=== PATIENT | female | born 1980 | race Caucasian/White ===

== ENCOUNTER 2022-11-09 21:30 | Observation (INO) | payer MEDICARE, MEDICAID ==
[~2022-11-09] VITALS: Ht 162.6 cm; Wt 117.2 kg
[2022-11-09] MEDS ORDERED: BACTRIM DS 8001 TAB PO (21:40)
[2022-11-09 22:34] LABS: BASO # 0.1 K/mm3 (0.0-0.2); BASO % 0.5 % (0.0-2.0); EOS # 0.2 K/mm3 (0.0-0.7); EOS % 1.2 % (0.0-4.0); GRAN # 8.2 K/mm3 (1.4-6.5); GRAN % 62.3 % (42.2-75.2); HEMATOCRIT 38.3 % (37.0-47.0); HEMOGLOBIN 12.1 g/dl (12.5-16.0); LYMPH # 3.8 K/mm3 (1.2-3.4); MEAN CELL VOLUME 87 fl (80.0-100.0); MEAN CORPUSCULAR HEMOGLOBIN 27 pg (27-31); MEAN CORPUSCULAR HGB CONC 32 g/dl (33.0-37.0); MEAN PLATELET VOLUME 8.9 fl (7.4-10.4); MONO # 0.9 K/mm3 (0.1-0.6); MONO % 6.5 % (1.7-9.3); PLATELET COUNT 402 K/mm3 (130-400); RED BLOOD COUNT 4.42 M/mm3 (4.10-5.30); REDCELL DISTRIBUTION WIDTH-CV 13.9 % (11.5-14.5)
[2022-11-09 22:51] LABS: CALCIUM 8.9 mg/dL (8.4-10.2); CREATININE, serum 0.81 mg/dL (0.57-1.11)
--- NOTE | 2022-11-10 01:40 | NUR ---
pt arrived to room from ED. pt a&ox4 and independent in room.
[2022-11-10 01:44] VITALS: BP 136/71; PULSE 83; TEMP 97.5
[2022-11-10 03:21] VITALS: BP 116/55; PULSE 78; TEMP 97.5
[2022-11-10 07:00] VITALS: BP 132/71; PULSE 93; TEMP 98.3
--- NOTE | 2022-11-10 07:20 | NUR ---
Received shift report from the night nurseCarrie RN
--- NOTE | 2022-11-10 07:26 | NUR ---
[id number] This student nurse received report from primary nurse from retail shift leader. Discussed plan of care and coordination with primary dayshift nurse, Amber ACOSTA. 0700 Pt resting in bed. Assessment completed (See shift assessment for details.) Pt c/o headache and right breast pain with a 2/10. Primary nurse notified. Pt is NPO is at this time. Call light within reach. Will continue to monitor.
[2022-11-10 08:00] VITALS: BP 132/71; PULSE 93; TEMP 98.3
--- NOTE | 2022-11-10 09:23 | NUR ---
Local Superintendent met with patient to discuss discharge planning. Patient lives in [place] and advised she is in the process of being evicted from her residence. Patient is unsure what her eviction date is as it's been unclear to her. Patient advised she is having many issues with the housing authority. Patient does not have reliable transportation and has no phone, which have been barriers for her. Patient does not have a current primary care physician at this time. Patient stated she has been in and out of the emergency room recently trying to figure out what's going on with her breast as well as adjusting her regular medications. Patient has been up ambulating in the halls independently. Patient does not have DPOA-HC. Her next of kin would be her two children: Sree and Milan who live out of state. Patient's local contacts are her mother, June and sister, Yoli (ph#[phone]). At this time, patient plans to return to her current residence at time of discharge. Discharge Plan: Home
--- NOTE | 2022-11-10 10:36 | NUR ---
Initial visit; Patient using telephone but thanked Lighting Director for stopping by and letting her know that Spiritual Care is available at [facility] and for offering her God's blessings.
[2022-11-10 11:43] VITALS: BP 126/68; PULSE 86; TEMP 98.2
--- NOTE | 2022-11-10 11:45 | NUR ---
Patient laying in bed alert and oriented. Patient c/o feeling nauseous and havng headaches. Patient has lumps and redness at the right breast with inverted nipples. Patient has no orders for N/V amnd pain. Phone call place to Dr. Saldaña for orders.
[2022-11-10] MEDS ORDERED: ULTRAM 50MG TAB50 MG PO (12:25)
--- NOTE | 2022-11-10 14:30 | NUR ---
Rehabilitation Specialist presented [facility]ANTES form to patient and advised she would be downgraded to observation status. Patient verbalized understanding and provided signature. SW placed form in chart and provided copy to patient.
== END 2022-11-10 14:00 | disposition home or self-care (01) ==
LOC: COL.ER 21:30 → SURG 11-10 00:11
PROVIDERS: Emergency Medicine Emergency Medical Services; ADMIT Surgery
DX: N63.0 Unspecified lump in unspecified breast (principal); R59.0 Localized enlarged lymph nodes; R91.1 Solitary pulmonary nodule
CPT/HCPCS: G0378; J0696; J2405; J3370; J7042; J7050; Q9967

== ENCOUNTER 2022-11-25 08:33 | Day surgery (SDC) | payer MEDICARE, MEDICAID ==
[2022-11-25] VITALS (7 sets, daily range): BP systolic 124–164; BP diastolic 65–86; PULSE 74–101; TEMP 97.6–98.5
[~2022-11-25] VITALS: Ht 162.6 cm; Wt 139.4 kg
[~2022-11-25 08:33] MED LIST: BACTRIM DS 8001 TAB PO; ULTRAM 50MG TAB50 MG PO
[2022-11-25] MEDS ORDERED: KAPSPARGO SPRIN25 MG PO (08:51)
[2022-11-25] MEDS ORDERED: NORCO 325 MG-51 TAB PO ×2 (08:51→11:36)
[2022-11-25] MEDS ORDERED: EUTHYROX25 MCG PO (08:52)
[2022-11-25] MEDS ORDERED: PRINIVIL10 MG PO (08:52)
[2022-11-25] MEDS ORDERED: LEXAPRO20 MG PO (08:53)
[2022-11-25] MEDS ORDERED: LIPITOR 40MG TA40 MG PO (08:53)
[2022-11-25] MEDS ORDERED: AMBIEN 10MG10 MG PO (08:53)
[2022-11-25] MEDS ORDERED: MIRAPEX 1MG PO (08:53)
[2022-11-25] MEDS ORDERED: ZYRTEC 10MG10 MG PO (08:54)
[2022-11-25] MEDS ORDERED: WELLBUTRIN SR150 M1 PO (08:54)
[2022-11-25] MEDS ORDERED: PROMETHAZINE12.5 M5 PO (08:55)
--- NOTE | 2022-11-25 09:17 | NUR ---
AT BEDSIDE SPEAKING WITH PT.
--- NOTE | 2022-11-25 19:18 | NUR ---
PT TO [facility] FROM OR S/P LEFT CHEST PORT-A-CATH PLACEMENT DRSG (SUTURE, BOARDER GAUZE; BANDAID) CDI PLACED ON MONITOR, VSS ON RA RECEIVED REPORT AND ASSUMED CARE OF PT FROM SHAYY AND ORRN FRIEND TO PICK HER UP AT D/C, DECLINED FAMILY NOTIFICATION A&O, NAD, PROVIDED PEPSI AND ICE CREAM S/P WAKING FROM MOD SEDATION - TOLERATING WELL. PT HAS REMAINED A&O, NAD, VSS ON RA, TOLERATING PO, IS WITHOUT SIGNIFICANT COMPLAINT, WITH STEADY GAIT THRU OUT [facility] 1210 IV D/C'D. D/C INSTRUCTIONS, ANY FOLLOW UP REVIEWED AND HANDED TO PT. ALL QUESTIONS AND CONCERNS ADDRESSED TO PT SATISFACTION. HOWEVER, RIDE CANNOT COME UNTI 1315 - TO TO WAIT IN RECOVERY BAY FOR RIDE 1300 C/O NAUSEA, IV D/C'D EARLIER, VORB FROM SHAYY Garcia FOR ZOFRAN ODT - ADMIN WITH ISOPROPOL VAPOR, RESULTING IN SATISFACTORY RELIEF TAKEN TO EXIT VIA W/C WITH ALL BELONGINGS AND PAPERWORK IN HAND, ASSISTED INTO PASSENGER SEAT OF POV. SO TO DRIVE HOME.
== END 2022-11-25 13:15 | disposition home or self-care (01) ==
LOC: SDCO 08:33
DX: C50.111 Malignant neoplasm of central portion of right female breast (principal); K21.9 Gastro-esophageal reflux disease without esophagitis; F17.210 Nicotine dependence, cigarettes, uncomplicated; Z17.0 Estrogen receptor positive status [ER+]
CPT/HCPCS: C1788; J1644; J7120

== ENCOUNTER 2023-12-20 21:01 | Emergency (ER) | payer MEDICARE, MEDICAID ==
[~2023-12-20] VITALS: Ht 162.6 cm; Wt 100.0 kg
[~2023-12-20 21:01] MED LIST changes: +AMBIEN 10MG10 MG PO; +COMPAZINE 110 MG/TAB PO; +DESYREL 50MG50 MG PO; +EUTHYROX25 MCG PO; +KAPSPARGO SPRIN25 MG PO; +LEXAPRO 10MG10 MG PO; +LEXAPRO20 MG PO; +LIPITOR 40MG TA40 MG PO; +LOPRESSOR 225 MG/TAB PO; +MAGNESIUM200 MG PO; +MIRAPEX 1MG PO; +NORCO 325 MG-51 TAB PO; +PERCOCET 325 MG1 TA2 PO; +PHENERGAN 25 TA25 MG PO; +PRINIVIL10 MG PO; +PROMETHAZINE12.5 M5 PO; +PROTONIX 40MG T40 MG PO; +REGLAN 5MG T5 MG/TAB PO; +VICTOZA6 MG/ML SQ; +WELLBUTRIN SR150 M1 PO; +ZANAFLEX 4MG TAB4 MG PO; +ZOFRAN ODT4 MG PO; +ZYRTEC 10MG10 MG PO
[2023-12-20 21:05] VITALS: TEMP 98
[2023-12-20] MEDS ORDERED: NS 1,000 ML IV ONE (21:15)
[2023-12-20 21:27] LABS: BASO # 0.1 K/mm3 (0.0-0.2); BASO % 0.7 % (0.0-2.0); EOS # 0.2 K/mm3 (0.0-0.7); EOS % 2.7 % (0.0-4.0); GRAN % 44.4 % (42.2-75.2); HEMATOCRIT 39.9 % (37.0-47.0); HEMOGLOBIN 13.2 g/dl (12.5-16.0); LYMPH # 4.2 K/mm3 (1.2-3.4); LYMPH % 47.1 % (20.0-51.0); MEAN CELL VOLUME 85 fl (80.0-100.0); MEAN CORPUSCULAR HEMOGLOBIN 28 pg (27-31); MEAN CORPUSCULAR HGB CONC 33 g/dl (33.0-37.0); MEAN PLATELET VOLUME 9.9 fl (7.4-10.4); MONO # 0.4 K/mm3 (0.1-0.6); MONO % 4.9 % (1.7-9.3); PLATELET COUNT 253 K/mm3 (130-400); RED BLOOD COUNT 4.68 M/mm3 (4.10-5.30); REDCELL DISTRIBUTION WIDTH-CV 14.5 % (11.5-14.5)
[2023-12-20 21:55] LABS: ALANINE AMINOTRANSFERASE 7 U/L (0-55); ALBUMIN 3.6 gm/dL (3.5-5.0); ALKALINE PHOSPHATASE 85 U/L (40-150); ANION GAP 10 mmol/L (7-16); AST,SGOT 12 U/L (5-34); BILIRUBIN,TOTAL 0.2 mg/dL (0.2-1.2); BLOOD UREA NITROGEN 6 mg/dL (7-19); CALCIUM 9.4 mg/dL (8.4-10.2); CHLORIDE 107 mmol/L (98-107); CREATININE, serum 0.73 mg/dL (0.57-1.11); GLUCOSE 100 mg/dL (70-99); POTASSIUM 3.5 mmol/L (3.5-4.5); SODIUM 136 mmol/L (136-145); TOTAL PROTEIN 6.6 gm/dL (6.2-8.1)
[2023-12-20 22:01] LABS: TROPONIN-I < 0.010 ng/mL (0.00-0.033)
[2023-12-20] MEDS ORDERED: Ketorolac 30 MG/ML VIAL IV ONE (22:30)
[2023-12-20 22:45] LABS: COLLECTION METHOD CLEAN CATCH
[2023-12-20 22:48] LABS: URINE APPEARANCE CLEAR (CLEAR/HAZY); URINE BLOOD NEGATIVE (NEGATIVE); URINE COLOR YELLOW (YELLOW); URINE GLUCOSE NEGATIVE (NEGATIVE); URINE KETONE NEGATIVE (NEGATIVE); URINE NITRATE NEGATIVE (NEGATIVE); URINE PROTEIN(semi-quant) NEGATIVE (NEGATIVE); URINE UROBILINOGEN 0.2 E.U/dL (0.2-1.0)
[2023-12-20 22:51] VITALS: BP 137/84; PULSE 94
[2023-12-20] MEDS ORDERED: ZOFRAN 4MG T4 MG/TAB PO (22:54)
== END 2023-12-20 23:17 | disposition home or self-care (01) ==
LOC: COL.ER 21:01
PROVIDERS: Emergency Medicine
DX: E86.0 Dehydration (principal); R55 Syncope and collapse; R11.10 Vomiting, unspecified
CPT/HCPCS: J1885; J7030

== ENCOUNTER 2024-04-12 12:50 | Emergency (ER) | payer MEDICARE, MEDICAID ==
[~2024-04-12] VITALS: Ht 162.6 cm; Wt 82.7 kg
[~2024-04-12 12:50] MED LIST changes: +ZOFRAN 4MG T4 MG/TAB PO
[2024-04-12 13:00] VITALS: TEMP 97.7
[2024-04-12 13:42] LABS: BASO # 0.1 K/mm3 (0.0-0.2); BASO % 0.5 % (0.0-2.0); EOS # 0.1 K/mm3 (0.0-0.7); GRAN # 4.8 K/mm3 (1.4-6.5); GRAN % 50.2 % (42.2-75.2); HEMATOCRIT 43.4 % (37.0-47.0); LYMPH % 42.1 % (20.0-51.0); MEAN CELL VOLUME 81 fl (80.0-100.0); MEAN CORPUSCULAR HEMOGLOBIN 28 pg (27-31); MEAN CORPUSCULAR HGB CONC 35 g/dl (33.0-37.0); MEAN PLATELET VOLUME 9.1 fl (7.4-10.4); MONO # 0.6 K/mm3 (0.1-0.6); PLATELET COUNT 318 K/mm3 (130-400); RED BLOOD COUNT 5.34 M/mm3 (4.10-5.30); REDCELL DISTRIBUTION WIDTH-CV 13.1 % (11.5-14.5)
[2024-04-12] MEDS ORDERED: Ondansetron 4 MG/2 ML VIAL IV ONE (13:45)
[2024-04-12] MEDS ORDERED: NS 1,000 ML IV ONE (13:45)
[2024-04-12 14:00] LABS: ALBUMIN 3.3 g/dL (3.5-5.0); BILIRUBIN,TOTAL 0.3 mg/dL (0.2-1.2); C-REACTIVE PROTEIN 0.95 mg/dL (0.00-0.50); CALCIUM 9.3 mg/dL (8.4-10.2); CREATININE, serum 0.88 mg/dL (0.57-1.11); MAGNESIUM 1.8 mg/dL (1.6-2.6); TOTAL PROTEIN 6.5 g/dl (6.2-8.1)
[2024-04-12 14:16] LABS: POTASSIUM 2.7 mEq/L (3.5-4.5)
[2024-04-12] MEDS ORDERED: Iohexol 300 - 100 ML VIAL IV ONE (16:48)
[2024-04-12] MEDS ORDERED: NS 100 ML IV SCH (16:49)
[2024-04-12] MEDS ORDERED: K-DUR20 MEQ PO (17:15)
[2024-04-12 17:35] VITALS: BP 102/68; PULSE 74
== END 2024-04-12 17:30 | disposition left against medical advice (07) ==
LOC: COL.ER 12:50
PROVIDERS: Nurse Practitioner
DX: R19.7 Diarrhea, unspecified (principal); E87.6 Hypokalemia; R11.2 Nausea with vomiting, unspecified
CPT/HCPCS: J1644; J2405; J3360; J7030; Q9967